=== PATIENT | male | born 1955 | race Caucasian/White ===

== ENCOUNTER 2021-12-04 16:22 | Outpatient (CLI) | payer MEDICARE ==
[2021-12-05 00:25] LABS: SARS-CoV-2 PCR by NAA Not Detected (NotDetected)
== END 2021-12-04 16:23 | disposition home or self-care (01) ==
LOC: LABBT 16:22
PROVIDERS: ATTEND Orthopaedic Surgery Hand Surgery
DX: S61.112A Laceration without foreign body of left thumb with damage to nail, initial encounter (principal); Z20.822 Contact with and (suspected) exposure to COVID-19
CPT/HCPCS: U0003; U0005

== ENCOUNTER 2021-12-07 11:52 | Day surgery (SDC) | payer MEDICARE ==
[2021-12-04 09:46] VITALS: BMI 26.6
[2021-12-07] MEDS ORDERED: Bacitracin Zinc Ointment 30 gm TUBE ONE (13:24)
[2021-12-07] MEDS ORDERED: Neomycin-Polymyxin 1 ML AMP ONE (13:24)
[2021-12-07] MEDS ORDERED: Mineral Oil Sterile 10 ML VIAL ONE (13:24)
[2021-12-07] MEDS ORDERED: Thrombin 5000 UNITS/5 ML VIAL ONE (13:24)
[2021-12-07] MEDS ORDERED: Bupivacaine PF 0.5% 30 ML VIAL ONE (13:24)
[2021-12-07] MEDS ORDERED: ceFAZolin (BATCH) 2 GM/100 ML BAG ONE (13:57)
[2021-12-07] MEDS ORDERED: fentaNYL Citrate/PF 100 MCG/2 ML SYRINGE ONE (14:02)
[2021-12-07] MEDS ORDERED: Ondansetron PF 4 MG/2 ML Vial ONE (14:09)
[2021-12-07] MEDS ORDERED: Lidocaine 1% PF 5 ML VIAL ONE (14:09)
[2021-12-07] MEDS ORDERED: PROPOFOL 200 MG/20 ML VIAL ONE (14:09)
[2021-12-07] MEDS ORDERED: Fentanyl 100 MCG/2 ML VIAL ONE (16:09)
== END 2021-12-07 17:32 | disposition home or self-care (01) ==
LOC: SDC 11:52
PROVIDERS: ATTEND Orthopaedic Surgery Hand Surgery
PROC: 0HRFX73 Replacement of Right Hand Skin with Autologous Tissue Substitute, Full Thickness, External Approach (ICD-10-PCS; principal; 2021-12-07)
DX: S61.112A Laceration without foreign body of left thumb with damage to nail, initial encounter (principal); W27.0XXA Contact with workbench tool, initial encounter
CPT/HCPCS: J0690; J2405; J2704; J3010; S0020